=== PATIENT | male | born 1960 | race Caucasian/White ===

== ENCOUNTER → 2018-09-05 16:51 | Outpatient (CLI) | payer BC ==
[2018-09-05 16:59] LABS: BASOPHILS 0.2 % (0-2); EOSINOPHILS 0.6 % (0-7); HEMATOCRIT 33.1 % (42.0-54.0); HEMOGLOBIN 10.5 g/dL (13.5-17.5); IMMATURE GRANULOCYTES 0.2 % (0-5); LYMPHOCYTES 28.1 % (15-50); MCH 23.1 pg (26.0-34.0); MCHC 31.7 g/dL (31.0-37.0); MCV 72.9 fL (80.0-100.0); MEAN PLATELET VOLUME 10.7 fL (7.4-10.4); MONOCYTES 6.6 % (2-11); NEUTROPHILS 64.3 % (40-80); PLATELET COUNT 146 10x3/uL (130-400); RBC 4.54 10x6/uL (4.20-6.10); RDW 16.4 % (11.5-14.5)
== END | disposition home or self-care (01) ==
LOC: D.LABREF 16:51
PROVIDERS: ATTEND Internal Medicine Gastroenterology
DX: K22.70 Barrett's esophagus without dysplasia (principal); D50.9 Iron deficiency anemia, unspecified